=== PATIENT | male | born 1990 | race Two or more races ===

== ENCOUNTER 2023-04-03 11:54 | Emergency (ER) | payer OTHER ==
[~2023-04-03] VITALS: Ht 177.8 cm; Wt 82.6 kg
[2023-04-03] MEDS ORDERED: AMOX-CLAV 875-1 EACH PO (13:56)
== END 2023-04-03 14:43 | disposition home or self-care (01) ==
LOC: ER 11:55
DX: J03.90 Acute tonsillitis, unspecified (principal)